=== PATIENT | male | born 1995 | race Caucasian/White ===

== ENCOUNTER 2017-10-31 14:01 | Emergency (ER) | payer BC, OTHER ==
[~2017-10-31] VITALS: Ht 172.7 cm; Wt 61.0 kg
[2017-10-31] MEDS ORDERED: IBUPROFEN 600MG TABLET PO ONE (19:15)
[2017-10-31 19:40] LABS: BASOPHILS % 0.4 % (0.0-2.0); EOSINOPHILS % 1.2 % (0.0-5.0); HEMATOCRIT. 45.9 % (42.0-52.0); HEMOGLOBIN. 15.6 g/dL (14.0-18.0); LYMPHOCYTES % 10.5 % (20.0-50.0); MEAN CORPUSCULAR HEMOGLOBIN 29.6 pg (28.0-32.0); MEAN CORPUSCULAR VOLUME 87.1 fL (80.0-94.0); MEAN PLATELET VOLUME 9.6 fl (7.4-10.4); MONOCYTES % 9.6 % (2.0-8.0); NEUTROPHILS % 78.3 % (40.0-76.0); PLATELET 226 x1000/uL (130-400); RED BLOOD CELL COUNT 5.27 mill/uL (4.7-6.1); RED CELL DISTRIBUTION WIDTH 13.9 % (11.6-14.6)
[2017-10-31 19:45] LABS: CHLORIDE 104 mEq/L (98-107)
[2017-10-31 19:51] LABS: CARBON DIOXIDE 30 mEq/L (21-32)
[2017-10-31] MEDS ORDERED: PENICILLIN G BENZATHINE 1,200,000 UNITS/2ML SYR IM NR (20:30)
[2017-10-31 21:05] VITALS: BP 113/62
== END 2017-10-31 21:05 | disposition home or self-care (01) ==
LOC: ER 14:01
DX: J02.0 Streptococcal pharyngitis (principal); M60.9 Myositis, unspecified; D72.829 Elevated white blood cell count, unspecified; F12.10 Cannabis abuse, uncomplicated
CPT/HCPCS: 36415; 80053; 85025; 87430; 87804; 99284; J0561